=== PATIENT | female | born 1950 | race Caucasian/White ===

== ENCOUNTER 2025-09-09 11:04 | Outpatient (CLI) | payer MEDICARE, SELFPAY ==
[2025-09-09 11:30] VITALS: BP 133/66; PULSE 107; RESP 16; TEMP 36.3; O2SAT 98; BMI 16.8
[2025-09-09 12:02] VITALS: BP 122/60; PULSE 107; RESP 16; TEMP 36.6
[2025-09-09 13:02] VITALS: BP 108/80; PULSE 105; RESP 16; TEMP 36.6
[2025-09-09 13:57] VITALS: BP 118/78; PULSE 102
== END 2025-09-09 23:59 | disposition home or self-care (01) ==
PROVIDERS: PCP Internal Medicine; Referring Provider Specialist; Visit Provider Specialist
DX: D64.81 Anemia due to antineoplastic chemotherapy (principal); T45.1X5A Adverse effect of antineoplastic and immunosuppressive drugs, initial encounter
CPT/HCPCS: 36430; 86850; 86900; 86901; 86920; P9016; A4216